=== PATIENT | female | born 1985 ===

== ENCOUNTER → 2019-04-02 11:24 | Outpatient (CLI) | payer OTHER, SELFPAY ==
--- NOTE | 2019-04-02 | DI.MRI.S_ITS ---
PROCEDURE: MR LOWER LEG RT WO/W CON INDICATIONS: localized swelling, mass and lump TECHNIQUE: Noncontrast coronal T1 spin echo and STIR, sagittal T1 spin echo with fat saturation and STIR, axial T1 spin echo and T2 fast spin echo with fat saturation. After the administration of contrast, axial/sagittal/coronal T1 spin echo with fat saturation through the right lower leg. COMPARISON: None. FINDINGS: Image quality: Diagnostic. Bones: No acute fracture, dislocation, or suspicious osseous lesion is appreciated involving the osseous structures of the right lower leg. No suspicious osseous enhancement is evident. Please note that the knee and ankle joints are not adequately evaluated nor completely included on this exam. Soft tissues: No soft tissue mass or lesion is evident. No loculated fluid collections are identified. The imaged muscles of the right lower leg are within normal limits. No focal tendon injuries are appreciated. There is a small focal bulge evident at the site of the patient's area of concern that involves the lateral head of the gastrocnemius muscle and potentially also the adjacent soleus muscle, likely related to a small defect of the superficial fascia at this location. No suspicious soft tissue enhancement is evident. No focal edema or atrophy of the muscle itself is evident at this location. IMPRESSION: 1. No suspicious bony or soft tissue mass or abnormal bony/soft tissue enhancement. 2. The patient's palpable lump correlates with focal protrusion of the lateral gastrocnemius and adjacent soleus muscles, likely representing a very small defect of the overlying superficial fascia, which may represents a focal muscle herniation. There is no corresponding abnormal signal of the muscle itself. Clinical correlation with physical exam findings, particularly with plantarflexion would be helpful for confirmation. Dictated by: Osbaldo Chavez M.D. on 04/02/2019 at 16:41 Approved by: Osbaldo Chavez M.D. on 04/02/2019 at 16:45
== END ==
PROVIDERS: Visit Provider Orthopaedic Surgery
DX: R22.41 Localized swelling, mass and lump, right lower limb (principal)
CPT/HCPCS: 73720; A9579